=== PATIENT | male | born 1975 | race Caucasian/White ===

== ENCOUNTER 2019-04-23 15:44 | Inpatient (IN) | payer SELFPAY ==
[~2019-04-23 15:44] MED LIST: Dexamethasone 20 MG/5 ML VIAL ONE; EPHEDRINE 25 MG/5 ML SYRINGE ONE; Glycopyrrolate 0.2 MG/ML 5 ML SYRINGE ONE; Lidocaine 1% PF 5 ML VIAL ONE; Ondansetron PF 4 MG/2 ML Vial ONE; PHENYLEPHRINE-NS 100 MCG/ML 10 ML SYRINGE ONE; PROPOFOL 200 MG/20 ML VIAL ONE; Rocuronium Bromide 10 MG/ML (10ML VIAL) ONE
[2019-04-23] MEDS ORDERED: Adacel (T-DAP) 0.5 ML SYRINGE ONE (15:57)
[2019-04-23 16:07] LABS: #Eosinphils 0.1 thou/uL (0.0-0.7); #Lymphocytes 1.4 thou/uL (1.20-3.40); #Neutrophils 15.2 thou/uL (1.40-6.50); %Basophils 0.3 % (0.0-1.0); %Eosinophils 0.4 % (0.0-10.0); %Monocytes 5.5 % (0.0-10.0); %Neutrophils 85.8 % (42.0-75.0); Hemoglobin 14.7 g/dL (14.0-18.0); Mean Corpuscular HGB CONC 33.9 g/dL (32.0-36.0); Mean Corpuscular Hemoglobin 32.3 pg (27.0-31.0); Mean Corpuscular Volume 95.4 fL (78.0-98.0); Mean Platelet Volume 7.8 fL (7.4-10.4); Platelet Count 166 thou/uL (130-400); RBC Distribution Width 11.5 % (11.5-14.5); Red Blood Cell (RBC) Count 4.55 mill/uL (4.70-6.10); White Blood Cell (WBC) Count 17.8 thou/uL (4.8-10.8)
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
[2019-04-23 16:30] LABS: ALT (SGPT) 35 U/L (8-55); AST (SGOT) 32 U/L (5-34); Albumin 4.2 g/dL (3.5-5.0); Alkaline Phosphatase 73 U/L (40-110); Anion Gap 17 mmol/L (10-20); BUN (Urea Nitrogen) 11 mg/dL (8.9-20.6); Bilirubin, Total 0.8 mg/dL (0.2-1.2); Calc. Creatinine Clearance 0 mL/min (70-130); Calcium 8.6 mg/dL (7.8-10.44); Carbon Dioxide 21 mmol/L (22-29); Chloride 105 mmol/L (98-107); Estimated GFR-MDRD 68; Globulin 2.8 g/dL (2.4-3.5); Glucose 145 mg/dL (70-105); Lipase 17 U/L (8-78); Potassium 3.6 mmol/L (3.5-5.1); Sodium 139 mmol/L (136-145)
[2019-04-23 16:31] LABS: PTT 25.3 SEC (22.9-36.1); Prothrombin Time 13.1 SEC (12.0-14.7)
[2019-04-23] MEDS ORDERED: Iopamidol-370 76% 500 ML 1 ML ONE (16:33)
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
[2019-04-23] MEDS ORDERED: Lidocaine 1% w/Epinephrine 1:100K 20 ML VIAL ONE (16:56)
[2019-04-23] MEDS ORDERED: Fentanyl 100 MCG/2 ML VIAL ONE ×2 (17:11→18:41)
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
[2019-04-23] MEDS ORDERED: Bacitracin 1 PK ONE (17:53)
[2019-04-23] MEDS ORDERED: Clindamycin/D5W 900 MG in Premix Bag 1 BAG IVPB SCH (18:15)
[2019-04-23] MEDS ORDERED: HYDROmorphone 2 MG/ML VIAL ONE (19:24)
--- NOTE | 2019-04-23 21:11 | RAD ---
EXAM: XR Femur Lt 2 View STANDARD DATE: 04/23/2019 12:00 AM INDICATION: Open reduction and internal fixation of a left femur fracture COMPARISON: Left femur radiographs dated April 23, 2019 at 3:35 PM. FINDING: Since the comparison examination there has been interval closed reduction and retrograde pl acement of an intramedullary georgiana traversing the comminuted segmental fracture involving the proximal left femur. The fracture alignment appears improved and near-anatomic. The intramedullary ro d with its proximal and distal interlocking screws project in the expected position. (6 total fluoroscopic spot images were submitted from the operating room. The total fluoroscopic time for this exam was 221.5 seconds.) IMPRESSION:Interval closed reduction and retrograde intramedullary nail placement traversing the prox imal, comminuted left femoral shaft fracture.
[2019-04-23] MEDS ORDERED: Sodium Chloride 0.9% 1,000 ML IV SCH (21:15)
[2019-04-23] MEDS ORDERED: Ondansetron PF 4 MG/2 ML Vial IVP PRN (21:15)
[2019-04-23] MEDS ORDERED: Morphine 4 MG/ML VIAL SLOW IVP PRN (21:15)
[2019-04-23] MEDS ORDERED: Insulin Regular 300 UNITS/3 ML VIAL SC PRN (21:15)
[2019-04-23] MEDS ORDERED: hydrALAZINE 20 MG/ML VIAL SLOW IVP PRN (21:15)
[2019-04-23] MEDS ORDERED: Dextrose 50% Abboject 50 ML SYRINGE SLOW IVP PRN (21:15)
[2019-04-23] MEDS ORDERED: Dextrose 5% in Water 1,000 ML IV PRN (21:15)
--- NOTE | 2019-04-23 21:17 | RAD ---
EXAM: 2 fluoroscopic spot images of the left knee DATE: 04/23/2019 12:00 AM INDICATION: Left knee patellar fracture; open reduction and internal fixation of the left knee calhoun lar fracture. COMPARISON: Left knee radiographs dated April 23, 2019 at 5:11 PM. FINDING: Since the comparison examination, there has been interval placement of a retrograde intrame dullary georgiana within the left femur with 2 separate distal interlock screws seen involving the supracondylar left femur. There is also been reduction and internal fixation with utilization of a ce rclage band of the heavily comminuted patellar fracture. Fracture alignment is near anatomic. The total fluoroscopic time was 3.4 seconds. The total exposure was 0.31 mGy. IMPRESSION:Interval open reduction and internal fixation of the comminuted left patellar fracture. Re trograde intramedullary georgiana placement within the left femur.
[2019-04-23] MEDS ORDERED: traMADol HCl 50 MG TAB PO PRN ×2 (21:21)
[2019-04-23] MEDS ORDERED: diphenhydrAMINE 25 MG CAP PO PRN (21:30)
[2019-04-23] MEDS ORDERED: Zolpidem Tartrate 5 MG TAB PO PRN (21:30)
[2019-04-23] MEDS ORDERED: fentaNYL Citrate/PF 2,000 MCG in Sodium Chloride 0.9% 60 ML IV PRN (21:30)
[2019-04-23] MEDS ORDERED: Naloxone HCl 0.4 mg/ml Vial IV PRN (21:30)
[2019-04-23] MEDS ORDERED: Ondansetron HCl/PF 4 MG/2 ML Vial IVP PRN (21:30)
[2019-04-23] MEDS ORDERED: diphenhydrAMINE 50 MG/ML VIAL IM PRN (21:30)
[2019-04-23] MEDS ORDERED: Promethazine HCl 25 MG/ML VIAL IM PRN ×2 (21:30)
[2019-04-23] MEDS ORDERED: Promethazine HCl 25 MG/ML VIAL SLOW IVP PRN (21:30)
[2019-04-23] MEDS ORDERED: Communication Order-Pharmacy FS SCH (21:30)
[2019-04-23] MEDS ORDERED: diphenhydrAMINE 50 MG/ML VIAL IVP PRN (21:30)
[2019-04-23] MEDS ORDERED: CEFAZOLIN 2 GM in Premix Bag 1 BAG IVPB SCH (22:00)
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
[2019-04-23 23:21] VITALS: BMI 35.0
[2019-04-23 23:26] LABS: #Lymphocytes 0.4 thou/uL (1.20-3.40); #Monocytes 0.4 thou/uL (0.11-0.59); #Neutrophils 12.7 thou/uL (1.40-6.50); %Eosinophils 0.2 % (0.0-10.0); %Lymphocytes 2.8 % (21.0-51.0); %Monocytes 2.6 % (0.0-10.0); %Neutrophils 94.3 % (42.0-75.0); Hemoglobin 11.8 g/dL (14.0-18.0); Mean Corpuscular HGB CONC 34.3 g/dL (32.0-36.0); Mean Corpuscular Hemoglobin 32.8 pg (27.0-31.0); Mean Corpuscular Volume 95.7 fL (78.0-98.0); Mean Platelet Volume 8.1 fL (7.4-10.4); Platelet Count 162 thou/uL (130-400); RBC Distribution Width 11.5 % (11.5-14.5); Red Blood Cell (RBC) Count 3.59 mill/uL (4.70-6.10); White Blood Cell (WBC) Count 13.5 thou/uL (4.8-10.8)
[2019-04-23 23:29] LABS: Lactic Acid 1.4 mmol/L (0.5-2.2)
[2019-04-24] MEDS: Ibuprofen 600 MG TAB PO SCH ×2 (00:23→06:40)
[2019-04-24] MEDS: Acetaminophen 500 MG TAB PO SCH ×5 (00:47→23:36)
[2019-04-24] MEDS: CEFAZOLIN 2 GM in Premix Bag 1 BAG IVPB SCH ×3 (00:48→16:42)
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
[2019-04-24 05:36] LABS: #Lymphocytes 0.7 thou/uL (1.20-3.40); #Monocytes 0.6 thou/uL (0.11-0.59); #Neutrophils 9.6 thou/uL (1.40-6.50); %Eosinophils 0.1 % (0.0-10.0); %Lymphocytes 6.5 % (21.0-51.0); %Monocytes 5.5 % (0.0-10.0); Hemoglobin 10.8 g/dL (14.0-18.0); Mean Corpuscular HGB CONC 34.6 g/dL (32.0-36.0); Mean Corpuscular Hemoglobin 33.3 pg (27.0-31.0); Mean Corpuscular Volume 96.2 fL (78.0-98.0); Mean Platelet Volume 8.2 fL (7.4-10.4); Platelet Count 150 thou/uL (130-400); RBC Distribution Width 11.5 % (11.5-14.5); Red Blood Cell (RBC) Count 3.25 mill/uL (4.70-6.10); White Blood Cell (WBC) Count 10.9 thou/uL (4.8-10.8)
[2019-04-24 05:58] LABS: Anion Gap 13 mmol/L (10-20); BUN (Urea Nitrogen) 11 mg/dL (8.9-20.6); Calc. Creatinine Clearance 142 mL/min (70-130); Calcium 7.5 mg/dL (7.8-10.44); Carbon Dioxide 23 mmol/L (22-29); Chloride 104 mmol/L (98-107); Estimated GFR-MDRD 73; Glucose 170 mg/dL (70-105); Magnesium 1.6 mg/dL (1.6-2.6); Phosphorus 3.4 mg/dL (2.3-4.7); Potassium 4.4 mmol/L (3.5-5.1); Sodium 136 mmol/L (136-145)
[2019-04-24] MEDS: Polyethylene Glycol 3350 17 GM Packet PO SCH (08:29)
[2019-04-24] MEDS: Senokot S 8.6-50 MG TAB PO SCH ×2 (08:29→20:31)
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
[2019-04-24] MEDS ORDERED: Famotidine/PF 20 mg/2ml Vial SLOW IVP SCH (09:00)
[2019-04-24] MEDS ORDERED: Gabapentin 100 MG CAP PO SCH (09:00)
[2019-04-24] MEDS ORDERED: traMADol HCl 50 MG TAB PO SCH ×3 (10:45→14:45)
[2019-04-24] MEDS: Cyclobenzaprine 10 MG TAB PO PRN ×2 (13:08→21:57)
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
[2019-04-24] MEDS ORDERED: traMADol HCl 50 MG TAB PO PRN ×2 (13:22→14:33)
[2019-04-24] MEDS: Gabapentin 300 MG CAP PO SCH ×2 (16:42→20:31)
[2019-04-24] MEDS: traMADol HCl 50 MG TAB PO SCH ×2 (17:21→23:36)
[2019-04-24] MEDS: Enoxaparin Sodium 30 MG/0.3 ML SYRINGE SC SCH (20:31)
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
[2019-04-25] MEDS: traMADol HCl 50 MG TAB PO SCH ×4 (05:41→23:56)
[2019-04-25] MEDS: Acetaminophen 500 MG TAB PO SCH ×4 (05:42→23:55)
[2019-04-25 06:04] LABS: Hemoglobin 8.3 g/dL (14.0-18.0); Mean Corpuscular HGB CONC 35.3 g/dL (32.0-36.0); Mean Corpuscular Hemoglobin 33.8 pg (27.0-31.0); Mean Corpuscular Volume 95.8 fL (78.0-98.0); RBC Distribution Width 11.5 % (11.5-14.5); Red Blood Cell (RBC) Count 2.47 mill/uL (4.70-6.10); White Blood Cell (WBC) Count 9.6 thou/uL (4.8-10.8)
[2019-04-25 07:20] LABS: #Eosinphils 0.1 thou/uL (0.0-0.7); #Lymphocytes 1.2 thou/uL (1.20-3.40); #Monocytes 0.5 thou/uL (0.11-0.59); #Neutrophils 7.7 thou/uL (1.40-6.50); %Basophils 0.5 % (0.0-1.0); %Eosinophils 0.9 % (0.0-10.0); %Lymphocytes 12.6 % (21.0-51.0); %Monocytes 5.2 % (0.0-10.0); %Neutrophils 80.8 % (42.0-75.0); MDiff Complete? YES; Mean Platelet Volume 8.6 fL (7.4-10.4); Platelet Count 114 thou/uL (130-400); Platelet Morphology Comment Appears Decreased
[2019-04-25] MEDS: Enoxaparin Sodium 30 MG/0.3 ML SYRINGE SC SCH ×2 (08:24→20:25)
[2019-04-25] MEDS: Senokot S 8.6-50 MG TAB PO SCH ×2 (08:24→20:24)
[2019-04-25] MEDS: Polyethylene Glycol 3350 17 GM Packet PO SCH (08:24)
[2019-04-25] MEDS: Gabapentin 300 MG CAP PO SCH ×3 (08:25→20:24)
[2019-04-25] MEDS: Scopolamine 1.5 mg/72 hour Patch TD SCH (14:19)
[2019-04-25] MEDS: Bacitracin 1 PK TOP SCH ×2 (14:20→20:24)
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
[2019-04-25] MEDS: Ascorbic Acid 500 mg Chewable Tablet PO SCH (20:24)
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
[2019-04-26 04:46] LABS: #Lymphocytes 0.7 thou/uL (1.20-3.40); #Monocytes 0.4 thou/uL (0.11-0.59); #Neutrophils 6.8 thou/uL (1.40-6.50); %Basophils 0.3 % (0.0-1.0); %Eosinophils 0.5 % (0.0-10.0); %Lymphocytes 9.2 % (21.0-51.0); %Monocytes 4.9 % (0.0-10.0); %Neutrophils 85.1 % (42.0-75.0); Hemoglobin 8.2 g/dL (14.0-18.0); Mean Corpuscular HGB CONC 36.3 g/dL (32.0-36.0); Mean Corpuscular Hemoglobin 34.3 pg (27.0-31.0); Mean Corpuscular Volume 94.6 fL (78.0-98.0); Mean Platelet Volume 7.7 fL (7.4-10.4); Platelet Count 114 thou/uL (130-400); RBC Distribution Width 11.3 % (11.5-14.5); Red Blood Cell (RBC) Count 2.38 mill/uL (4.70-6.10)
[2019-04-26] MEDS: Acetaminophen 500 MG TAB PO SCH ×4 (05:39→23:51)
[2019-04-26] MEDS: traMADol HCl 50 MG TAB PO SCH ×4 (05:40→23:51)
[2019-04-26] MEDS: Ferrous Sulfate 325 MG TAB PO SCH ×2 (08:01→17:17)
[2019-04-26] MEDS: Senokot S 8.6-50 MG TAB PO SCH ×2 (08:02→19:56)
[2019-04-26] MEDS: Bacitracin 1 PK TOP SCH ×3 (08:02→19:55)
[2019-04-26] MEDS: Ascorbic Acid 500 mg Chewable Tablet PO SCH ×2 (08:02→19:55)
[2019-04-26] MEDS: Gabapentin 300 MG CAP PO SCH ×3 (08:02→19:55)
[2019-04-26] MEDS: Enoxaparin Sodium 30 MG/0.3 ML SYRINGE SC SCH ×2 (08:03→19:55)
[2019-04-26] MEDS: Polyethylene Glycol 3350 17 GM Packet PO SCH (08:03)
[2019-04-26] MEDS ORDERED: traMADol HCl 50 MG TAB PO SCH (10:00)
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
[2019-04-26] MEDS: Ondansetron PF 4 MG/2 ML Vial IVP PRN (18:10)
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
[2019-04-27] MEDS: Acetaminophen 500 MG TAB PO SCH ×3 (05:25→18:58)
[2019-04-27] MEDS: traMADol HCl 50 MG TAB PO SCH ×3 (05:25→18:58)
[2019-04-27] MEDS ORDERED: diphenhydrAMINE 25 MG CAP PO SCH (06:30)
[2019-04-27] MEDS: Ondansetron PF 4 MG/2 ML Vial IVP PRN ×2 (08:15→18:58)
[2019-04-27] MEDS: Enoxaparin Sodium 30 MG/0.3 ML SYRINGE SC SCH ×2 (08:16→19:45)
[2019-04-27] MEDS: Bacitracin 1 PK TOP SCH ×3 (08:16→19:45)
[2019-04-27] MEDS: Ferrous Sulfate 325 MG TAB PO SCH ×2 (08:16→18:58)
[2019-04-27] MEDS: Senokot S 8.6-50 MG TAB PO SCH ×2 (08:16→19:45)
[2019-04-27] MEDS: Gabapentin 300 MG CAP PO SCH ×3 (08:16→19:45)
[2019-04-27] MEDS: Polyethylene Glycol 3350 17 GM Packet PO SCH (08:16)
[2019-04-27] MEDS: Ascorbic Acid 500 mg Chewable Tablet PO SCH ×2 (08:17→19:45)
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
[2019-04-27] MEDS: Acetaminophen 650 MG/20.3 ML UDCUP PO SCH (23:44)
[2019-04-27] MEDS: Acetaminophen/Codeine 30-300mg Tablet PO PRN (23:49)
[2019-04-27] MEDS: diphenhydrAMINE 50 MG CAP PO PRN (23:49)
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
[2019-04-28] MEDS: Acetaminophen/Codeine 30-300mg Tablet PO PRN ×3 (06:41→20:30)
[2019-04-28] MEDS: Acetaminophen 650 MG/20.3 ML UDCUP PO SCH ×4 (06:42→23:22)
[2019-04-28] MEDS: Ascorbic Acid 500 mg Chewable Tablet PO SCH ×2 (10:18→20:26)
[2019-04-28] MEDS: Bacitracin 1 PK TOP SCH ×3 (10:18→20:25)
[2019-04-28] MEDS: Ferrous Sulfate 325 MG TAB PO SCH ×2 (10:18→18:50)
[2019-04-28] MEDS: Cyclobenzaprine 10 MG TAB PO PRN ×2 (10:18→18:50)
[2019-04-28] MEDS: Polyethylene Glycol 3350 17 GM Packet PO SCH (10:18)
[2019-04-28] MEDS: Senokot S 8.6-50 MG TAB PO SCH ×2 (10:18→20:25)
[2019-04-28] MEDS: Enoxaparin Sodium 30 MG/0.3 ML SYRINGE SC SCH ×2 (10:18→20:25)
[2019-04-28] MEDS: Gabapentin 300 MG CAP PO SCH ×3 (10:19→20:26)
[2019-04-28] MEDS: Ondansetron PF 4 MG/2 ML Vial IVP PRN (10:19)
--- NOTE | 2019-04-28 12:45 | PDOC.GSPN ---
Surgery Progress Note: Obj - Vital signs Vital signs: Vital Signs - Most Recent Temp Pulse Resp BP Pulse Ox 98.1 F 107 H 16 117/69 92 L 04/28/19 11:23 04/28/19 11:23 04/28/19 11:23 04/28/19 11:23 04/28/19 11:23 Surgery Progress Note: Results - Labs Result Diagrams: 04/26/19 04:27 04/24/19 04:59 Addendum - Physician - Physician Attestation Date/Time: 04/28/19 7945 I personally performed or re-performed the physical examination and medical decision making. I have verified all student documentation or findings, including history, physical exam and/or medical decision making.
[2019-04-28] MEDS: Scopolamine 1.5 mg/72 hour Patch TD SCH (13:46)
[2019-04-28] MEDS: diphenhydrAMINE 50 MG CAP PO PRN (18:50)
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
[2019-04-28] MEDS ORDERED: Acetaminophen/Codeine 30-300mg Tablet PO PRN (23:50)
[2019-04-29] MEDS: Cyclobenzaprine 10 MG TAB PO PRN (01:00)
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
[2019-04-29] MEDS: Acetaminophen 650 MG/20.3 ML UDCUP PO SCH ×2 (05:55→12:02)
[2019-04-29 07:33] VITALS: BP 118/77; TEMP 97.7
[2019-04-29] MEDS: Ferrous Sulfate 325 MG TAB PO SCH (08:30)
[2019-04-29] MEDS: Ascorbic Acid 500 mg Chewable Tablet PO SCH (08:30)
[2019-04-29] MEDS: Senokot S 8.6-50 MG TAB PO SCH (08:31)
[2019-04-29] MEDS: Enoxaparin Sodium 30 MG/0.3 ML SYRINGE SC SCH (08:31)
[2019-04-29] MEDS: Polyethylene Glycol 3350 17 GM Packet PO SCH (08:31)
[2019-04-29] MEDS: Gabapentin 300 MG CAP PO SCH (08:31)
[2019-04-29] MEDS: Bacitracin 1 PK TOP SCH (08:32)
[2019-04-29] MEDS: diphenhydrAMINE 50 MG CAP PO PRN (08:34)
[2019-04-29] MEDS ORDERED: Gabapentin 300 MG CAP PO SCH (09:00)
[2019-04-29] MEDS ORDERED: HYDROcodone/Acetaminophen 10/325 mg Tablet PO SCH (11:15)
== END 2019-04-29 15:42 | disposition home or self-care (01) | DRG 480 ==
LOC: ERS 15:44 → SDC/OP 18:00 → IMCU/EMU 21:22 → SURG A 23:25
PROVIDERS: ADMIT Specialist; ATTEND Specialist
PROC: 0QH906Z Insertion of Intramedullary Internal Fixation Device into Left Femoral Shaft, Open Approach (ICD-10-PCS; principal; 2019-04-23)
PROC: 0QSF04Z Reposition Left Patella with Internal Fixation Device, Open Approach (ICD-10-PCS; 2019-04-23)
PROC: 0YQFXZZ Repair Right Knee Region, External Approach (ICD-10-PCS; 2019-04-23)
PROC: 0HQ1XZZ Repair Face Skin, External Approach (ICD-10-PCS; 2019-04-23)
DX: S82.042A Displaced comminuted fracture of left patella, initial encounter for closed fracture (principal); S72.352A Displaced comminuted fracture of shaft of left femur, initial encounter for closed fracture; S01.81XA Laceration without foreign body of other part of head, initial encounter; S81.011A Laceration without foreign body, right knee, initial encounter; S06.0X0A Concussion without loss of consciousness, initial encounter; I10 Essential (primary) hypertension; J45.909 Unspecified asthma, uncomplicated; E11.9 Type 2 diabetes mellitus without complications; V44.5XXA Car driver injured in collision with heavy transport vehicle or bus in traffic accident, initial encounter; Z88.0 Allergy status to penicillin; Z88.7 Allergy status to serum and vaccine; Z79.899 Other long term (current) drug therapy
CPT/HCPCS: 12002; 12013; 36415; 36416; 51702; 70450; 71045; 71260; 72125; 72170; 74177; 76000; 80048; 80053; 83605; 83690; 83735; 84100; 85025; 85610; 85730; 86850; 86900; 86901; 90471; 90715; 93005; 96365; 96375; C1713; C1769; G0390; J0690; J1100; J1170; J1650; J2001; J2405; J2704; J3010; J3490; Q0163; Q9967; S0028